=== PATIENT | male | born 1985 | race Caucasian/White ===

== ENCOUNTER → 2017-03-25 | Outpatient (CLI) | payer OTHER ==
[~2017-03-25] MED LIST: CEFU500T63 PO; RT-ALBUTEROL SULF 2.5 MG/3 ML PRE-MIX VIAL IH ONE
== END ==
LOC: RT 12:18
PROVIDERS: ATTEND Nurse Practitioner Family
DX: E66.01 Morbid (severe) obesity due to excess calories; R06.02 Shortness of breath; J45.909 Unspecified asthma, uncomplicated
CPT/HCPCS: 94060; 94640; 94726; 94729

== ENCOUNTER 2017-03-31 12:10 | Outpatient (CLI) | payer OTHER ==
[~2017-03-31 12:10] MED LIST changes: -RT-ALBUTEROL SULF 2.5 MG/3 ML PRE-MIX VIAL IH ONE
== END 2017-04-01 06:55 | disposition home or self-care (01) ==
LOC: SLEEP 12:10
PROVIDERS: ATTEND Nurse Practitioner Family
DX: G47.33 Obstructive sleep apnea (adult) (pediatric) (principal); R55 Syncope and collapse
CPT/HCPCS: 95811

== ENCOUNTER 2017-05-18 00:06 | Emergency (ER) | payer OTHER ==
[~2017-05-18] VITALS: Ht 193 cm; Wt 186.0 kg
[2017-05-18] MEDS ORDERED: KETOROLAC 60 MG/2 ML VIAL IM ONE (00:30)
[2017-05-18] MEDS ORDERED: ORPHENADRINE 60 MG/2 ML (NORFLEX) AMP IM ONE (00:30)
--- NOTE | 2017-05-18 00:36 | ED Upper Extremity ---
General Chief Complaint: Upper Extremity Stated Complaint: R SHOULDER PAIN Nursing Triage Note: RIGHT SHOULDER PAIN AFTER LIFTING AT WORK Nursing Sepsis Screen: No Definite Risk Source: patient Exam Limitations: no limitations History of Present Illness Time seen by provider: 00:13 Initial Comments This 31-year-old gentleman presents to the emergency room with sharp right- sided shoulder pain radiating up into the right trapezius muscle and to the lower neck. Symptoms started 2 days ago. 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 He has used ibuprofen up to 600 mg per dose and Aspercreme. He reports having a shoulder injury a few years ago with suspicion for rotator cuff damage that improved with physical therapy. Patient has also been trying a heating pad which has been mildly helpful. He denies any traumatic injury. Allergies and Home Medications Allergies Coded Allergies: Penicillins (Verified Allergy, Unknown, 11/25/16) morphine (Verified Allergy, Unknown, 11/25/16) Home Medications No Active Prescriptions or Reported Meds Constitutional: no symptoms reported EENTM: no symptoms reported Respiratory: no symptoms reported Cardiovascular: no symptoms reported Gastrointestinal: no symptoms reported Genitourinary: no symptoms reported Musculoskeletal: see HPI Skin: no symptoms reported Psychiatric/Neurological: No Symptoms Reported Past Tfocdbv-Xsrfsi-Ivlvgq Hx Patient Social History Alcohol Use: Denies Use Recreational Drug Use: No Type Used: Smokeless Tobacco 2nd Hand Smoke Exposure: No Recent Foreign Travel: No Contact w/Someone Who Travel: No Recent Infectious Disease Expo: No Recent Hopitalizations: No Immunizations Up To Date Tetanus Booster (TDap): Unknown Seasonal Allergies Seasonal Allergies: No Surgeries History of Surgeries: Yes (LOOP RECORDER) Respiratory History of Respiratory Disorde: Yes Respiratory Disorders: Asthma, Sleep Apnea Currently Using CPAP: No Currently Using BIPAP: No Cardiovascular History of Cardiac Disorders: Yes Cardiac Disorders: Syncope Neurological History of Neurological Disord: No Reproductive System Hx Reproductive Disorders: No Genitourinary History of Genitourinary Disor: No Gastrointestinal History of Gastrointestinal Di: No Musculoskeletal History of Musculoskeletal Dis: No Endocrine History of Endocrine Disorders: No (OBESE) HEENT History of HEENT Disorders: No Cancer History of Cancer: No Psychosocial History of Psychiatric Problem: No Integumentary History of Skin or Integumenta: No Blood Transfusions History of Blood Disorders: No Physical Exam Vital Signs Vital Sign - Last 12Hours 05/18/17 00:15 Temp 97.2 Pulse 100 Resp 18 B/P (MAP) 149/105 Pulse Ox 97 O2 Delivery Room Air Capillary Refill : Less Than 3 Seconds General Appearance: WD/WN, no apparent distress HEENT: normal ENT inspection Neck: normal inspection Cardiovascular: regular rate, rhythm, no murmur, other (normal right radial pulse) Respiratory: lungs clear, normal breath sounds, no respiratory distress Back: normal inspection Shoulder: normal inspection, limited ROM (active range of motion is intact with the exception of terminal range of motion with internal rotation and posterior reach behind the back. There is mild tenderness about the shoulder joint and moderate tenderness within the trapezius muscle which also feels tense.) Elbow/Forearm: normal inspection, non-tender, no evidence of injury, normal ROM , Right Wrist: Yes normal inspection, Yes non-tender, Yes no evidence of injury, Yes normal ROM Hand: normal inspection, non-tender, no evidence of injury, normal ROM, Right Neurologic/Psychiatric: manager meat II-XII nml as tested, no motor/sensory deficits, alert, normal mood/affect, oriented x 3 Skin: normal color, warm/dry Progress/Results/Core Measures Results/Orders My Orders Orders - SILAS TORRES MD Ketorolac Injection (Toradol Injection) (05/18/17 00:30) Orphenadrine Injection (Norflex Injectio (05/18/17 00:30) Vital Signs/I&O Blood Pressure Mean: 120 Progress Note : Progress Note Patient received injections for Toradol and Norflex. He was advised to use regular doses of ibuprofen and Tylenol and reduce strenuous activity. Ultimately, I believe he should follow-up with his primary care provider and/or an orthopedist for further assessment if a few days of ibuprofen does not resolve his problem. He may have aggravated his old rotator cuff injury. Reduced lifting and strenuous activity with the right upper extremity was recommended and a note for work was provided. Patient was also offered tramadol but he reports it was previously ineffective. x-rays were not performed as there was no history of traumatic injury. Departure Impression Impression: Primary Impression: Right shoulder pain Qualified Codes: M25.511 - Pain in right shoulder Additional Impression: Strain of trapezius muscle Qualified Codes: S46.811A - Strain of other muscles, fascia and tendons at shoulder and upper arm level, right arm, initial encounter Disposition: 01 HOME, SELF-CARE Condition: Improved Departure-Patient Inst. Decision time for Depature: 00:32 Referrals: NO,LOCAL PHYSICIAN (PCP/Family) Primary Care Physician Patient Instructions: Muscle Strain (DC), Shoulder Sprain Add. Discharge Instructions: Take ibuprofen up to 800 mg 3 times daily and add Tylenol (acetaminophen) 1000 mg every 6 hours as needed for pain. Minimize strenuous activity and lifting as much as possible until pain resolves. Follow-up with your primary care provider in 2 or 3 days if pain is not improving as expected. Discussed the possibility of MRI and/or orthopedic referral with your primary care provider. Ice and/or heat in 20 minute intervals may be helpful. All discharge instructions reviewed with patient and/or family. Voiced understanding. Scripts No Active Prescriptions or Reported Meds Work/School Note: Work Release Form Date Seen in the Emergency Department: May 18, 2017 Return to Work: May 18, 2017 Other Restrictions Listed Below: Minimize heavy lifting/strenuous activity of right arm as much as possible Restrictions: Minimize heavy lifting/strenuous activity with right arm as much as possibl SILAS TORRES MD May 18, 2017 00:36
[2017-05-18 01:00] VITALS: BP 149/105
== END 2017-05-18 00:58 | disposition home or self-care (01) ==
LOC: EDUNIT# 00:06 → ER 00:08
DX: S29.012A Strain of muscle and tendon of back wall of thorax, initial encounter (principal); M25.511 Pain in right shoulder; E66.9 Obesity, unspecified; J45.909 Unspecified asthma, uncomplicated; Z87.828 Personal history of other (healed) physical injury and trauma; X50.0XXA Overexertion from strenuous movement or load, initial encounter
CPT/HCPCS: 99284

== ENCOUNTER 2017-07-27 07:15 | Day surgery (SDC) | payer SELFPAY ==
[2017-07-27] VITALS (14 sets, daily range): BP systolic 101–156; BP diastolic 56–102
[~2017-07-27] VITALS: Ht 193 cm; Wt 202.5 kg
--- NOTE | 2017-07-27 07:30 | ED Chest Pain ---
General Chief Complaint: Chest Pain Stated Complaint: CP,LEFT SIDE PAIN Source: patient Exam Limitations: no limitations History of Present Illness Date Seen by Provider: Jul 27, 2017 Time Seen by Provider: 07:22 Initial Comments This 31-year-old white male presents with a complaint of left-sided chest pain. The pressure type chest pain began last night near midnight and has not changed upon presentation to the emergency department. Past medical history includes syncopal episodes for which Dr. Campos has implanted interrogation device. The patient does not have known heart disease. The patient has not had a cardiac catheter. The patient denies diaphoresis, nausea, or shortness of breath. Several days ago the patient had the onset of a flulike illness with nausea and vomiting. He denies associated fever, cough, headache, stiff neck, or photophobia. Past medical history includes sleep apnea. Allergies and Home Medications Allergies Coded Allergies: Penicillins (Verified Allergy, Unknown, 11/25/16) morphine (Verified Allergy, Unknown, 11/25/16) Review of Systems Constitutional: No chills, No fever EENTM: No Nose Congestion, No Throat Pain Respiratory: Denies Cough Cardiovascular: See HPI, Chest Pain, Denies Irregular Heart Rate, Denies Palpitations Gastrointestinal: Denies Abdominal Pain, Denies Diarrhea, Nausea, Vomiting Genitourinary: Denies Burning, Denies Frequency, Denies Flank Pain Musculoskeletal: No back pain Skin: No rash Psychiatric/Neurological: No Symptoms Reported Endocrine: No Symptoms Reported Hematologic/Lymphatic: No Symptoms Reported Past Mjksghy-Ynvbzb-Obtkrm Hx Patient Social History Type Used: Smokeless Tobacco 2nd Hand Smoke Exposure: No Recent Foreign Travel: No Contact w/Someone Who Travel: No Recent Hopitalizations: No Immunizations Up To Date Tetanus Booster (TDap): Unknown Seasonal Allergies Seasonal Allergies: No Surgeries History of Surgeries: Yes (LOOP RECORDER) Respiratory History of Respiratory Disorde: Yes Respiratory Disorders: Asthma, Sleep Apnea Currently Using CPAP: No Currently Using BIPAP: No Cardiovascular History of Cardiac Disorders: Yes Cardiac Disorders: Syncope Neurological History of Neurological Disord: No Reproductive System Hx Reproductive Disorders: No Genitourinary History of Genitourinary Disor: No Gastrointestinal History of Gastrointestinal Di: No Musculoskeletal History of Musculoskeletal Dis: No Endocrine History of Endocrine Disorders: No (OBESE) HEENT History of HEENT Disorders: No Cancer History of Cancer: No Psychosocial History of Psychiatric Problem: No Integumentary History of Skin or Integumenta: No Blood Transfusions History of Blood Disorders: No Reviewed Nursing Assessment Reviewed/Agree w Nursing PMH: Yes Physical Exam Vital Signs Vital Sign - Last 12Hours 07/27/17 07:21 Temp 97.5 Pulse 93 Resp 20 B/P (MAP) 136/80 (98) Pulse Ox 98 O2 Delivery Room Air Capillary Refill : General Appearance: No Apparent Distress, WD/WN, Obese HEENT: Normal ENT Inspection Neck: Normal Inspection Respiratory: Lungs Clear, Normal Breath Sounds, No Accessory Muscle Use, No Respiratory Distress Cardiovascular: Regular Rate, Rhythm, No Murmur Gastrointestinal: Normal Bowel Sounds, Non Tender, Soft Extremity: Normal Capillary Refill, Normal Inspection, Normal Range of Motion Neurologic/Psychiatric: Oriented x3, No Motor/Sensory Deficits, Normal Mood/ Affect Skin: Normal Color, Warm/Dry, No Rash Progress/Results/Core Measures Results/Orders Lab Results Laboratory Tests Test 07/27/17 07:23 Range/Units White Blood Count 9.7 4.3-11.0 10^3/uL Red Blood Count 4.71 4.35-5.85 10^6/uL Hemoglobin 13.3 13.3-17.7 G/DL Hematocrit 42 40-54 % Mean Corpuscular Volume 89 80-99 FL Mean Corpuscular Hemoglobin 28 25-34 PG Mean Corpuscular Hemoglobin Concent 32 32-36 G/DL Red Cell Distribution Width 13.2 10.0-14.5 % Platelet Count 296 130-400 10^3/uL Mean Platelet Volume 9.9 7.4-10.4 FL Neutrophils (%) (Auto) 67 42-75 % Lymphocytes (%) (Auto) 18 12-44 % Monocytes (%) (Auto) 14 H 0-12 % Eosinophils (%) (Auto) 1 0-10 % Basophils (%) (Auto) 1 0-10 % Neutrophils # (Auto) 6.5 1.8-7.8 X 10^3 Lymphocytes # (Auto) 1.7 1.0-4.0 X 10^3 Monocytes # (Auto) 1.4 H 0.0-1.0 X 10^3 Eosinophils # (Auto) 0.1 0.0-0.3 10^3/uL Basophils # (Auto) 0.1 0.0-0.1 10^3/uL Prothrombin Time 12.3 12.2-14.7 SEC INR Comment 0.9 0.8-1.4 Activated Partial Thromboplast Time 33 24-35 SEC Sodium Level 138 135-145 MMOL/L Potassium Level 3.9 3.6-5.0 MMOL/L Chloride Level 103 98-107 MMOL/L Carbon Dioxide Level 24 21-32 MMOL/L Anion Gap 11 5-14 MMOL/L Blood Urea Nitrogen 14 7-18 MG/DL Creatinine 0.96 0.60-1.30 MG/DL Estimat Glomerular Filtration Rate > 60 BUN/Creatinine Ratio 15 Glucose Level 128 H 70-105 MG/DL Calcium Level 8.9 8.5-10.1 MG/DL Magnesium Level 2.1 1.8-2.4 MG/DL Total Bilirubin 0.6 0.1-1.0 MG/DL Aspartate Amino Transf (AST/SGOT) 17 5-34 U/L Alanine Aminotransferase (ALT/SGPT) 21 0-55 U/L Alkaline Phosphatase 82 40-136 U/L Myoglobin 29.7 10.0-92.0 NG/ML Troponin I < 0.30 <0.30 NG/ML Total Protein 8.2 6.4-8.2 GM/DL Albumin 3.8 3.2-4.5 GM/DL Micro Results Microbiology 07/27/17 Influenza Types A,B Antigen (REJI) - Final, Complete My Orders Orders - OLVIN COUGHLIN MD Cbc With Automated Diff (07/27/17 07:32) Magnesium (07/27/17 07:32) Chest 1 View, Ap/Pa Only (07/27/17 07:32) Ekg Tracing (07/27/17 07:32) Cardiac Profile 1 (07/27/17 07:32) Comprehensive Metabolic Panel (07/27/17 07:32) Myoglobin Serum (07/27/17 07:32) Protime With Inr (07/27/17 07:32) Partial Thromboplastin Time (07/27/17 07:32) O2 (07/27/17 07:32) Monitor-Rhythm Ecg Trace Only (07/27/17 07:32) Lipid Panel (07/28/17 06:00) Aspirin Chewable Tablet (Baby Aspirin Ch (07/27/17 07:45) Nitroglycerin 0.4 Mg Btl 25's (Nitrostat (07/27/17 07:45) Saline Lock/Iv-Start (07/27/17 07:32) Influenza A And B Antigens (07/27/17 07:32) Ns Iv 1000 Ml (Sodium Chloride 0.9%) (07/27/17 07:45) Nitroglycerin Ointment (Nitrobid Ointme (07/27/17 09:15) Medications Given in ED Current Medications Medications Dose Ordered Sig/Charles Route Start Time Stop Time Status Last Admin Dose Admin Aspirin 324 mg ONCE ONCE PO 07/27/17 07:45 07/27/17 07:46 DC 07/27/17 07:46 324 MG Nitroglycerin 0.4 mg UD PRN SL 07/27/17 07:45 07/27/17 07:47 0.4 MG Nitroglycerin 1 inch ONCE ONCE TOP 07/27/17 09:15 07/27/17 09:16 DC 07/27/17 09:19 1 INCH Vital Signs/I&O Vital Sign - Last 12Hours 07/27/17 07/27/17 07:21 07:46 Temp 97.5 97.5 Pulse 93 Resp 20 B/P (MAP) 136/80 (98) Pulse Ox 98 O2 Delivery Room Air Progress Note : Time: 09:28 Progress Note The patient's lab demonstrated a normal troponin and an EKG which demonstrated a sinus tachycardia but no acute current of injury. However, the patient had a good response to nitroglycerin for his chest pain. Dr. Campos was kind enough to admit the patient for further observation and evaluation. The patient had an inch of nitro paste applied to his chest wall. Departure Communication (Admissions) Time/Spoke to Admitting Phy: 09:[address] Campos Impression Impression: Primary Impression: Chest pain Qualified Codes: R07.9 - Chest pain, unspecified Disposition: ADMITTED INPATIENT Condition: Improved Admissions Decision to Admit Reason: Admit from ER (General) Decision to Admit/Date: Jul 27, 2017 Time/Decision to Admit Time: 09:34 Transfer Time Spoke to Accepting Phy: 09:[address] Campos Departure-Patient Inst. Referrals: NO,LOCAL PHYSICIAN (PCP/Family) Primary Care Physician OLVIN COUGHLIN MD Jul 27, 2017 07:30
[2017-07-27] MEDS ORDERED: ASPIRIN 81 MG CHEW (CHILDREN'S ASA) PO ONE (07:45)
[2017-07-27] MEDS ORDERED: NS IV 1000 ML 1,000 ML IV SCH (07:45)
[2017-07-27] MEDS ORDERED: NITROGLYCERIN 0.4 MG SL TABS BTL 25'S SL PRN (07:45)
[2017-07-27 07:46] LABS: BASOPHILS # (AUTO) 0.1 10^3/uL (0.0-0.1); BASOPHILS % (AUTO) 1 % (0-10); EOSINOPHILS # (AUTO) 0.1 10^3/uL (0.0-0.3); EOSINOPHILS % (AUTO) 1 % (0-10); HEMATOCRIT 42 % (40-54); HEMOGLOBIN 13.3 G/DL (13.3-17.7); LYMPHOCYTES # (AUTO) 1.7 X 10^3 (1.0-4.0); LYMPHOCYTES % (AUTO) 18 % (12-44); MEAN CORPUSCULAR HEMOGLOBIN 28 PG (25-34); MEAN CORPUSCULAR HGB CONC 32 G/DL (32-36); MEAN CORPUSCULAR VOLUME 89 FL (80-99); MEAN PLATELET VOLUME 9.9 FL (7.4-10.4); MONOCYTES # (AUTO) 1.4 X 10^3 (0.0-1.0); MONOCYTES % (AUTO) 14 % (0-12); NEUTROPHILS # (AUTO) 6.5 X 10^3 (1.8-7.8); NEUTROPHILS % (AUTO) 67 % (42-75); PLATELET COUNT 296 10^3/uL (130-400); RED BLOOD COUNT 4.71 10^6/uL (4.35-5.85); RED CELL DISTRIBUTION WIDTH 13.2 % (10.0-14.5); WHITE BLOOD COUNT 9.7 10^3/uL (4.3-11.0)
[2017-07-27 07:53] LABS: ALANINE AMINOTRANSFERASE 21 U/L (0-55); ALBUMIN 3.8 GM/DL (3.2-4.5); ALKALINE PHOSPHATASE 82 U/L (40-136); BILIRUBIN,TOTAL 0.6 MG/DL (0.1-1.0); BUN/CREATININE RATIO 15; CALCIUM 8.9 MG/DL (8.5-10.1); CARBON DIOXIDE 24 MMOL/L (21-32); CHLORIDE 103 MMOL/L (98-107); CREATININE SERUM 0.96 MG/DL (0.60-1.30); GFR ESTIMATED > 60; GLUCOSE 128 MG/DL (70-105); MAGNESIUM 2.1 MG/DL (1.8-2.4); POTASSIUM 3.9 MMOL/L (3.6-5.0); SODIUM 138 MMOL/L (135-145); TOTAL PROTEIN 8.2 GM/DL (6.4-8.2)
[2017-07-27 07:55] LABS: INR 0.9 (0.8-1.4); PROTHROMBIN TIME PATIENT 12.3 SEC (12.2-14.7)
--- NOTE | 2017-07-27 08:00 | Diagnostic Imaging Report ---
INDICATION: Chest pain. PA chest obtained at 7:45 a.m. and compared with 11/25/2016. FINDINGS: Heart is normal in size for a portable view. Mediastinal silhouette is unremarkable. The lungs are clear. There is no pneumothorax or pleural fluid. IMPRESSION: Negative chest. Dictated by: Dictated on workstation # [id number]
[2017-07-27 08:01] LABS: MYOGLOBIN SERUM 29.7 NG/ML (10.0-92.0)
[2017-07-27] MEDS ORDERED: NITROGLYCERIN 2% OINT 1 GM UNIT DOSE PACKET TOP ONE (09:15)
[2017-07-27] MEDS ORDERED: IBUP-30 PO (12:40)
--- NOTE | 2017-07-27 12:42 | Cardiology History & Physical ---
HPI-Cardiology Cardiology H&P Date of Admission 07/27/17 Primary Care Physician Mary,Local Physician Attending Physician Isidro Campos MD, MA FACP [facility] Consulting Physician PHIL CC: Chest discomfort Mr. Rosario is a 31 year old male admitted to ICU 5 from the ED. He reports he began to have left sided chest pain which radiated across his chest, to his left arm and into his abdomen. He describes it as a hard pain which was constant. He rates it an 8/10. It lasted for several hours. He does report feeling some shortness of breath with the pain. He reports he became ill on night with n/v/d. He reports having fever and chills at home. No c/o cough. No c/o syncope or near syncope. No c/o LE edema. No c/o palpitations. He is currently pain free. Review of Systems-Cardiology Review of Systems Constitutional: chills, fever Eyes: No vision change Ears/Nose/Throat: No epistaxis Respiratory: As described under HPI Cardiovascular: As described under HPI Gastrointestinal: diarrhea, nausea, vomiting Genitourinary: No dysuria, No hematuria Musculoskeletal: no symptoms reported Skin: No rash, No ulcerations Psychiatric/Neurological: No syncope Hematologic: No bleeding abnormalities ERQ-Shyadt-Uumzgp Hx Patient Social History Alcohol Use: Denies Use Recreational Drug Use: No Smoking Status: Former Smoker Type Used: Smokeless Tobacco 2nd Hand Smoke Exposure: No Recent Foreign Travel: No Recent Infectious Disease Expo: No Immunizations Up To Date Tetanus Booster (TDap): Unknown Past Medical History PMH As described under Assessment. Family Medical History Family Medical History: He does not report any family h/o premature CAD or SCD. He reports his father and grand-father have Meinere's disease. Allergies and Home Medications Allergies Coded Allergies: Penicillins (Verified Allergy, Unknown, 11/25/16) morphine (Verified Allergy, Unknown, 11/25/16) Home Medications Ibuprofen 200 Mg Tablet, 400 MG PO Q6H PRN for PAIN-MILD, (Reported) Physical Exam-Cardiology Physical Exam Vital Signs/I&O Vital Sign - Last 12Hours 07/27/17 07/27/17 07/27/17 07/27/17 07:21 07:30 07:46 10:55 Temp 97.5 97.5 97.5 Pulse 93 83 Resp 20 18 B/P (MAP) 136/80 (98) Pulse Ox 98 96 O2 Delivery Room Air Room Air Room Air 07/27/17 07/27/17 07/27/17 13:00 15:08 16:00 Pulse 78 Pulse Ox 96 98 O2 Delivery Room Air Room Air Capillary Refill : Less Than 3 Seconds Constitutional: AAO x 3, well-developed, well-nourished HEENT: PERRL, hearing is well preserved Neck: No carotid bruit, carotid pulses are 2 + bilaterally Respiratory: other (good air entry) Cardiovascular: No JVD, S1 and S2 Gastrointestinal: No tender, soft, round, audible bowel sounds (hyperactive) Rectal: No deferred Extremities: no lower extremity edema bilateral Neurologic/Psychiatric: grossly intact, power is 5/5 both on sides Skin: No rash, No ulcerations Data Review Labs Laboratory Tests 07/27/17 07:23: White Blood Count 9.7, Red Blood Count 4.71, Hemoglobin 13.3, Hematocrit 42, Mean Corpuscular Volume 89, Mean Corpuscular Hemoglobin 28, Mean Corpuscular Hemoglobin Concent 32, Red Cell Distribution Width 13.2, Platelet Count 296, Mean Platelet Volume 9.9, Neutrophils (%) (Auto) 67, Lymphocytes (%) (Auto) 18, Monocytes (%) (Auto) 14H, Eosinophils (%) (Auto) 1, Basophils (%) (Auto) 1, Neutrophils # (Auto) 6.5, Lymphocytes # (Auto) 1.7, Monocytes # (Auto) 1.4H, Eosinophils # (Auto) 0.1, Basophils # (Auto) 0.1, Prothrombin Time 12.3, INR Comment 0.9, Activated Partial Thromboplast Time 33, Sodium Level 138, Potassium Level 3.9, Chloride Level 103, Carbon Dioxide Level 24, Anion Gap 11, Blood Urea Nitrogen 14, Creatinine 0.96, Estimat Glomerular Filtration Rate > 60 , BUN/Creatinine Ratio 15, Glucose Level 128H, Calcium Level 8.9, Magnesium Level 2.1, Total Bilirubin 0.6, Aspartate Amino Transf (AST/SGOT) 17, Alanine Aminotransferase (ALT/SGPT) 21, Alkaline Phosphatase 82, Myoglobin 29.7, Troponin I < 0.30, Total Protein 8.2, Albumin 3.8 07/27/17 11:45: Troponin I < 0.30 07/27/17 17:45: Troponin I < 0.30 Microbiology 07/27/17 Influenza Types A,B Antigen (REJI) - Final, Complete Radiology NAME: HERIBERTO ROSARIO [facility] REC#: [id number] PT STATUS: ADM Cory : 1985 PHYSICIAN: OLVIN COUGHLIN MD ADMIT DATE: 07/27/17/ICU Signed Date of Exam: 07/27/17 CHEST 1 VIEW, AP/PA ONLY INDICATION: Chest pain. PA chest obtained at 7:45 a.m. and compared with 11/25/2016. FINDINGS: Heart is normal in size for a portable view. Mediastinal silhouette is unremarkable. The lungs are clear. There is no pneumothorax or pleural fluid. IMPRESSION: Negative chest. Dictated by: Dictated on workstation # [id number] Dict: 07/27/17 0756 Trans: 07/27/17 1426 Interpreted by: ROULA VENTURA MD Electronically signed by: ROULA VENTURA MD 07/27/17 1426 ECG Impression ECG Initial ECG Rhythm: Normal Sinus A/P-Cardiology Assessment/Admission Diagnosis Chest discomfort of undetermined etiology - no evidence of ACS Occ near-syncope of undetermined etiology. ILR has not shown any significant arrhythmia during the last episode in December 2016. No further syncopal or near syncopal episodes LILO for which he is on CPAP tx being followed by Dr. Morel of pulmonology services Morbid obesity with BMI approx 56 Echo of 11/25/16: LVEF 65%, triv TR, PASP aprpox 30 mmHg ETT echo of 11/25/16: No ischemia or infarction S/p ILR, implanted 11/26/16: no significant cardiac arrhythmia demonstrated so far TSH normal on 11/25/16 (1.34) Recent GI illness Discussion and Recomendations Chest discomfort of undetermined etiology with no evidence of ACS Continue current medication regimen Ambulate Monitor lab Advised efforts at weight loss. D/t elevated BMI discussed risk of DM 2. Further rec will be based on his hospital course This H&P is being scribed by Antione Canela APRN on behalf of Dr. Campos after discussion regarding plan of care. Clinical Quality Measures AMI/AHF: ASA po Prior to arrival: No Physician Assessment Physician Assessment No cp or palp or syncope at time of my exam. Has had some shortness of breath and gen swelling Lungs: good bilat air entry Cor: reg Ext: mod edema A&R * As documented in our note above that I updated (italics) and as noted below * One dose of diuretics to treat edema * Consider card cath if symptoms of cp recur * No clinical evidence of pulm embolism * Enoxaparin for DVT and PE prevention * I spoke with him and his mother in detail and answered questions * Further recs to be based on hosp course ISIDRO CAMPOS MD FACP FAC CCDS Jul 27, 2017 12:42 ANDREINA CANELA Jul 27, 2017 16:30
[2017-07-27] MEDS ORDERED: INFLUENZA TRIvalent 2017-2018 0.5 ML/45 MCG SYR IM ONE (16:00)
[2017-07-27] MEDS ORDERED: NS IV 1000 ML 1,000 ML ONE (16:12)
[2017-07-27] MEDS ORDERED: FUROSEMIDE 40 MG/4 ML INJ (LASIX) ONE (17:52)
[2017-07-27] MEDS ORDERED: FUROSEMIDE 40 MG/4 ML INJ (LASIX) IVP ONE (18:00)
[2017-07-27 18:18] LABS: CARDIAC PROFILE 2 < 0.30 NG/ML (<0.30)
[2017-07-27] MEDS: ENOXAPARIN 40 MG/0.4 ML (LOVENOX) SYR SC SCH (22:02)
[2017-07-28] VITALS (18 sets, daily range): BP systolic 96–165; BP diastolic 65–113
[2017-07-28 04:57] LABS: BASOPHILS % (AUTO) 1 % (0-10); EOSINOPHILS # (AUTO) 0.2 10^3/uL (0.0-0.3); EOSINOPHILS % (AUTO) 2 % (0-10); HEMATOCRIT 42 % (40-54); HEMOGLOBIN 13.2 G/DL (13.3-17.7); LYMPHOCYTES # (AUTO) 2.2 X 10^3 (1.0-4.0); LYMPHOCYTES % (AUTO) 25 % (12-44); MEAN CORPUSCULAR HEMOGLOBIN 28 PG (25-34); MEAN CORPUSCULAR HGB CONC 32 G/DL (32-36); MEAN CORPUSCULAR VOLUME 88 FL (80-99); MEAN PLATELET VOLUME 9.6 FL (7.4-10.4); MONOCYTES # (AUTO) 0.8 X 10^3 (0.0-1.0); MONOCYTES % (AUTO) 9 % (0-12); NEUTROPHILS # (AUTO) 5.5 X 10^3 (1.8-7.8); NEUTROPHILS % (AUTO) 63 % (42-75); PLATELET COUNT 285 10^3/uL (130-400); RED CELL DISTRIBUTION WIDTH 13.3 % (10.0-14.5); WHITE BLOOD COUNT 8.7 10^3/uL (4.3-11.0)
[2017-07-28 05:29] LABS: ALANINE AMINOTRANSFERASE 24 U/L (0-55); ALBUMIN 3.7 GM/DL (3.2-4.5); ALKALINE PHOSPHATASE 63 U/L (40-136); BILIRUBIN,TOTAL 0.8 MG/DL (0.1-1.0); BUN/CREATININE RATIO 17; CALCIUM 8.9 MG/DL (8.5-10.1); CARBON DIOXIDE 24 MMOL/L (21-32); CHLORIDE 103 MMOL/L (98-107); CHOLESTEROL 192 MG/DL (< 200); GFR ESTIMATED > 60; GLUCOSE 110 MG/DL (70-105); HDL CHOLESTEROL 38 MG/DL (40-60); POTASSIUM 3.9 MMOL/L (3.6-5.0); SODIUM 139 MMOL/L (135-145); TOTAL PROTEIN 7.8 GM/DL (6.4-8.2); TRIGLYCERIDES 99 MG/DL (<150); VLDL CHOLESTEROL 20 MG/DL (5-40)
[2017-07-28] MEDS ORDERED: NS IV 1000 ML 1,000 ML ONE (07:36)
[2017-07-28] MEDS ORDERED: LIDOCAINE 1% INJ 50 ML (XYLOCAINE) VIAL ONE (07:36)
[2017-07-28] MEDS ORDERED: HEParin (CATH LAB) 2,000 ML IV ONE (07:36)
--- NOTE | 2017-07-28 08:47 | Progress Note-Cardiology ---
Cardiology SOAP Progress Note Subjective: In bed. No further c/o CP. States he feels better today. No c/o dyspnea, palpitations. Objective: I&O/Vital Signs Vital Sign - Last 12Hours 07/28/17 07/28/17 07/28/17 07/28/17 02:00 03:00 04:00 04:00 Pulse 93 92 87 Resp 19 16 B/P (MAP) 127/76 (93) 147/96 (113) 131/74 (93) Pulse Ox 94 95 96 94 O2 Delivery Room Air Room Air Room Air Room Air 07/28/17 07/28/17 07/28/17 07/28/17 05:00 06:00 08:00 08:00 Temp 97.6 Pulse 91 88 B/P (MAP) 124/99 (107) 136/77 (96) Pulse Ox 95 95 O2 Delivery Room Air Room Air Room Air Room Air 07/28/17 12:00 O2 Delivery Room Air Intake and Output 07/28/17 00:00 Intake Total 300 ml Output Total 1150 ml Balance -850 ml Weight (Pounds): 449 Weight (Ounces): 0.0 Weight (Calculated Kilograms): 203.861787 Constitutional: AAO x 3, well-developed, well-nourished Respiratory: other (good air entry) Cardiovascular: No JVD, S1 and S2 Gastrointestional: No tender, soft, round, audible bowel sounds (hyperactive) Extremities: no lower extremity edema bilateral Neurologic/Psychiatric: grossly intact, power is 5/5 both on sides Skin: No rash, No ulcerations Results/Procedures: Labs Laboratory Tests 07/27/17 17:45: Troponin I < 0.30 07/27/17 23:50: Troponin I < 0.30 07/28/17 04:35: White Blood Count 8.7, Red Blood Count 4.70, Hemoglobin 13.2L, Hematocrit 42, Mean Corpuscular Volume 88, Mean Corpuscular Hemoglobin 28, Mean Corpuscular Hemoglobin Concent 32, Red Cell Distribution Width 13.3, Platelet Count 285, Mean Platelet Volume 9.6, Neutrophils (%) (Auto) 63, Lymphocytes (%) (Auto) 25, Monocytes (%) (Auto) 9, Eosinophils (%) (Auto) 2, Basophils (%) (Auto) 1, Neutrophils # (Auto) 5.5, Lymphocytes # (Auto) 2.2, Monocytes # (Auto) 0.8, Eosinophils # (Auto) 0.2, Basophils # (Auto) 0.0, Sodium Level 139, Potassium Level 3.9, Chloride Level 103, Carbon Dioxide Level 24, Anion Gap 12, Blood Urea Nitrogen 15, Creatinine 0.90, Estimat Glomerular Filtration Rate > 60, BUN/ Creatinine Ratio 17, Glucose Level 110H, Calcium Level 8.9, Total Bilirubin 0.8 , Aspartate Amino Transf (AST/SGOT) 18, Alanine Aminotransferase (ALT/SGPT) 24, Alkaline Phosphatase 63, Total Protein 7.8, Albumin 3.7, Triglycerides Level 99 , Cholesterol Level 192, LDL Cholesterol Direct 138H, VLDL Cholesterol 20, HDL Cholesterol 38L Microbiology 07/27/17 Influenza Types A,B Antigen (REJI) - Final, Complete A/P: Assessment: Chest discomfort of undetermined etiology - no evidence of ACS Card cath on 07/28/17: no angiographically significant CAD; LVEF 50-55%; LVEDP 17mmHg; no significant MR; no evidence of thoracic aortic aneurysm or dissection Occ near-syncope of undetermined etiology. ILR has not shown any significant arrhythmia during the last episode in December 2016. No further syncopal or near syncopal episodes LILO for which he is on CPAP tx being followed by Dr. Morel of pulmonology services Morbid obesity with BMI approx 56 Echo of 11/25/16: LVEF 65%, triv TR, PASP aprpox 30 mmHg ETT echo of 11/25/16: No ischemia or infarction S/p ILR, implanted 11/26/16: no significant cardiac arrhythmia demonstrated so far TSH normal on 11/25/16 (1.34) Recent GI illness Plan: Chest discomfort of undetermined etiology with no evidence of ACS No recurrence of CP Continue current medication regimen Advised efforts at weight loss. D/t elevated BMI discussed risk of DM 2. Physician Assessment Physician Assessment No new symptoms Lungs: good bilat air entry, but chronically diminished at the bases Cor: reg Ext: no c/c. Mild to mod chronic nonpitting edema of the legs A&R * As documented in our note above that I updated (italics) and as noted below * Based on cardiac w/u, his chest pain does not appear to of CV origin. His cp has not recurred since admission * We have advised cardiopulm risk factor modification, most importantly wgt loss * We are continuing to monitor cardiac rhythm because of occ syncope or undetermined etiology Clinical Quality Measures AMI/AHF: ASA po Prior to arrival: ANDREINA Mendosa Jul 28, 2017 08:47 NAE SOSA MD FACP [facility] CCDS Jul 28, 2017 13:57
[2017-07-28] MEDS ORDERED: diphenhydrAMINE 50 MG/ML INJ (BENADRYL) ONE (11:29)
[2017-07-28] MEDS ORDERED: MIDAZOLAM 5 MG/5 ML (VERSED) VIAL ONE (11:29)
[2017-07-28] MEDS ORDERED: fentaNYL INJECTION 100 MCG/2 ML AMP ONE (11:29)
[2017-07-28] MEDS ORDERED: VERAPAMIL 5 MG/2 ML (CALAN) VIAL IV ONE (11:52)
[2017-07-28] MEDS ORDERED: NITROGLYCERIN DRIP 25 MG/D5W 250 ML IV ONE (11:52)
[2017-07-28] MEDS ORDERED: HEParin 1000 UNIT/ML (10ML VIAL) FOR BOLUS ONE (11:52)
[2017-07-28] MEDS: NS IV 1000 ML 1,000 ML IV SCH (14:20)
[2017-07-28] MEDS ORDERED: PATIENT MAY USE OWN MEDS, ALL PO SCH (14:30)
[2017-07-28] MEDS: ENOXAPARIN 40 MG/0.4 ML (LOVENOX) SYR SC SCH (20:03)
--- NOTE | 2017-07-28 21:13 | CARDIAC CATHETERIZATION ---
DATE OF SERVICE: CARDIAC CATHETERIZATION REPORT The patient is a 31-year-old man, who has a history of intermittent syncope. He presents with chest pain relieved with sublingual nitroglycerin. He has multiple coronary artery disease risk factors, including morbid obesity with a body mass index of approximately 55. Cardiac catheterization was carried out today after having obtained an informed consent. PROCEDURE: He was brought to the cardiac catheterization laboratory in a fasting state. Plan was to proceed through the right radial approach. Yony's test was normal. We proceeded with cannulation of the right radial artery after preparing and draping the area in the usual sterile fashion and after using 1% lidocaine. Getting into the ascending aorta, however, proved very difficult. This is because the ostium of the left brachiocephalic artery is at the downslope of the aortic arch, creating a very difficult angle for advancement of wires and catheters to the ascending aorta for coronary angiography and left ventricular angiography. We were able to advance multiple catheters, but we were then not able to torque them appropriately for coronary angiography. In the end, after multiple attempts, this approach was abandoned. The sheath was left in place in the wrist and we carried out cardiac catheterization via the groin approach. The right groin had been prepared and draped in the usual sterile fashion. We used 1% lidocaine and used the modified Seldinger technique to access the right femoral artery. At first, we got into the left femoral vein and we did advance a 5-[place] sheath into the left femoral vein and used that as a guide to cannulate the right femoral artery. We were then able to advance a 6-[place] sheath into the right femoral artery, through which we carried out left heart catheterization. We used a 6-[place] JL4 catheter for left coronary angiography and 6-[place] JR4 catheter for right coronary angiography. We used a 5-[place] pigtail catheter for left heart catheterization, left ventricular angiography. The catheter was pulled back and placed in the aortic arch and aortic arch angiography was performed. The aortic arch angiography was performed because of our initial difficulty with accessing the ascending aorta through the right subclavian trunk and we wanted to ensure that there were no complications or any significantly abnormal anatomy. This angiography was performed and the catheter was then removed. We carried out angiography of the right femoral artery through the sheath, but the site of sheath insertion was not appropriate for device closure of the right femoral artery. Manual pressure was used to achieve hemostasis. He tolerated the procedure well. HEMODYNAMICS: Left ventricular end-diastolic pressure following coronary angiography was 17 mmHg. There was no significant pressure gradient on pullback across the aortic valve. Ascending aortic pressure was 113/86 with a mean of 97 mmHg. LEFT VENTRICULAR ANGIOGRAPHY: Left ventricular angiography was carried out in the right anterior oblique projection. Global left ventricular systolic function appears well preserved. Left ventricular ejection fraction is 50% to 55%. There does not appear to be significant mitral regurgitation. CORONARY ANGIOGRAPHY: Left main coronary artery, left anterior descending artery, left circumflex artery, right coronary artery appear angiographically normal. Flow throughout the coronaries is somewhat sluggish. No significant obstructive disease is seen. Right coronary artery is dominant. AORTIC ARCH ANGIOGRAPHY: Aortic arch angiography did not indicate any significant thoracic aortic aneurysm or dissection. The ostium of the right brachiocephalic trunk is on the downslope of the aortic arch, creating a difficult angle for approach via the right radial artery. The neck arteries, to the extent seen, do not exhibit any significant stenosis or dissection. CONCLUSIONS: 1. No angiographically significant coronary artery disease. 2. Well preserved global left ventricular systolic function with ejection fraction of 50 to 55%. 3. Mild elevation of left ventricular end-diastolic pressure. 4. No significant mitral regurgitation. 5. No evidence of any thoracic aortic aneurysm or dissection. DISCUSSION AND RECOMMENDATIONS: Based on the results of the study, his chest discomfort does not appear to be of cardiovascular origin. Continuing risk factor modification is advised, in particular efforts at weight loss, given body mass index of approximately 55. Job ID: [id number] DocumentID: [id number] Dictated Date: 07/28/2017 14:14:57 [employer] Date: 07/28/2017 14:59:00 Dictated By: NAE SOSA MD, MA, FACP, FACC,
[2017-07-29] VITALS (7 sets, daily range): BP systolic 120–153; BP diastolic 70–92
[2017-07-29] MEDS: NS IV 1000 ML 1,000 ML IV SCH (00:49)
[2017-07-29 04:26] LABS: HEMOGLOBIN 12.9 G/DL (13.3-17.7); MEAN PLATELET VOLUME 9.7 FL (7.4-10.4); RED BLOOD COUNT 4.56 10^6/uL (4.35-5.85)
[2017-07-29 04:44] LABS: BUN/CREATININE RATIO 17; CALCIUM 8.9 MG/DL (8.5-10.1); CARBON DIOXIDE 24 MMOL/L (21-32); CHLORIDE 104 MMOL/L (98-107); CREATININE SERUM 0.95 MG/DL (0.60-1.30); GFR ESTIMATED > 60; GLUCOSE 118 MG/DL (70-105); SODIUM 139 MMOL/L (135-145)
--- NOTE | 2017-07-29 08:33 | Progress Note-Cardiology ---
Cardiology SOAP Progress Note Subjective: No c/o CP, palpitations, or dyspnea. C/O right groin pain at the cardiac cath site. No c/o right wrist pain. Objective: I&O/Vital Signs Vital Sign - Last 12Hours 07/29/17 07/29/17 07/29/17 07/29/17 07:00 08:03 08:30 08:37 Temp 97.8 Pulse 84 89 Resp 21 B/P (MAP) 124/74 (91) Pulse Ox 95 97 O2 Delivery Nasal Cannula Room Air Nasal Cannula O2 Flow Rate 2.00 2.00 07/29/17 07/29/17 07/29/17 08:46 12:35 13:05 Temp 98.2 B/P (MAP) 153/91 (111) Pulse Ox 96 O2 Delivery Room Air Nasal Cannula Intake and Output 07/29/17 00:00 Intake Total 0 ml Output Total 1000 ml Balance -1000 ml Weight (Pounds): 446 Weight (Ounces): 6.0 Weight (Calculated Kilograms): 202.110495 Side: right (right groin and right wrist) Groin site without hematoma: Yes Condition: DP/PT pulses palpable, extremity w/d/p Bruising: mild bruising Constitutional: AAO x 3, well-developed, well-nourished Respiratory: other (good air entry) Cardiovascular: No JVD, S1 and S2 Gastrointestional: No tender, soft, round, audible bowel sounds Extremities: no lower extremity edema bilateral Neurologic/Psychiatric: grossly intact, power is 5/5 both on sides Skin: No rash, No ulcerations Results/Procedures: Labs Laboratory Tests 07/29/17 04:12: White Blood Count 9.0, Red Blood Count 4.56, Hemoglobin 12.9L, Hematocrit 40, Mean Corpuscular Volume 89, Mean Corpuscular Hemoglobin 28, Mean Corpuscular Hemoglobin Concent 32, Red Cell Distribution Width 13.0, Platelet Count 302, Mean Platelet Volume 9.7, Sodium Level 139, Potassium Level 4.0, Chloride Level 104, Carbon Dioxide Level 24, Anion Gap 11, Blood Urea Nitrogen 16, Creatinine 0.95, Estimat Glomerular Filtration Rate > 60, BUN/Creatinine Ratio 17, Glucose Level 118H, Calcium Level 8.9 Microbiology 07/27/17 Influenza Types A,B Antigen (REJI) - Final, Complete A/P: Assessment: Chest discomfort of undetermined etiology - no evidence of ACS; does not appear to be cardiac in origin based on cardiac cath of 07-28-17 Card cath on 07/28/17: no angiographically significant CAD; LVEF 50-55%; LVEDP 17mmHg; no significant MR; no evidence of thoracic aortic aneurysm or dissection Occ near-syncope of undetermined etiology. ILR has not shown any significant arrhythmia during the last episode in December 2016. No further syncopal or near syncopal episodes LILO for which he is on CPAP tx being followed by Dr. Morel of pulmonology services Morbid obesity with BMI approx 56 Echo of 11/25/16: LVEF 65%, triv TR, PASP aprpox 30 mmHg ETT echo of 11/25/16: No ischemia or infarction S/p ILR, implanted 11/26/16: no significant cardiac arrhythmia demonstrated so far TSH normal on 11/25/16 (1.34) Recent GI illness Plan: Chest discomfort of undetermined etiology with no evidence of ACS; does not appear cardiac in origin based on cardiac cath of 07-28-17 No recurrence of CP Continue current medication regimen Advised efforts at weight loss. D/t elevated BMI discussed risk of DM 2 C/O right groin pain at the cardiac cath site - arterial u/s today Likely d/c home today if right groin u/s OK Physician Assessment Physician Assessment Feels well. Denies cp or palp or shortness of breath or syncope. Wishes to go home Lungs: clear Cor: reg Ext: no c/c/e. Mild bruising at sites of vascular access A&R * As documented in our note above that I update (italics) and as noted below * We discussed his CV w/u * Focus of CV management is on risk factor mod * We advised him of his risk for DM II * We advised wgt loss and discussed strategies * We advised outpt f/u Clinical Quality Measures AMI/AHF: ASA po Prior to arrival: ANDREINA Mendosa [employer] OPERATOR Jul 29, 2017 08:33 NAE SOSA MD FACP [facility]AC CCDS Jul 29, 2017 17:27
--- NOTE | 2017-07-29 09:46 | Diagnostic Imaging Report ---
INDICATION: Right groin pain, status post heart catheterization. TECHNIQUE: Sonographic interrogation of the right groin was performed. FINDINGS: The right common femoral artery and vein are patent. No hematoma or pseudoaneurysm is identified. No AV fistula is detected. IMPRESSION: Unremarkable right groin ultrasound. Dictated by: Dictated on workstation # [id number]
--- NOTE | 2017-07-29 17:39 | Cardiac Procedure Note-CS/ASA ---
Pre-Procedure Note Pre-Op Procedure Note H&P Reviewed The H&P was reviewed, patient examined and no changes noted. Date H&P Reviewed: Jul 28, 2017 Time H&P Reviewed: 11:00 Conscious Sedation Pre-Proced Time Reviewed: 11:00 ASA Class: 3 Airway Mallampati Classification: ([place] appropriate class) I. II. III, IV Lungs Heart ASA score ASA 1: a normal healthy patient ASA 2: a patient with a mild systemic disease (mid diabetes, controlled hypertension, obesity ASA 3: a patient with a severe systemic disease that limits activity (angina , COPD, prior Myocardial infarction) ASA 4: a patient with an incapacitating disease that is a constant threat to life (CHF, renal failure) ASA 5: a moribund patient not expected to survive 24 hrs. (ruptured aneurysm) ASA 6: a declared brain patient whose organs are being harvested. For emergent operations, add the letter E after the classification Grade 4 Sedation Plan: Analgesia, Amnesia, Plan communicated to team members, Discussed options with patient/fam, Discussed risks with patient/fam Note The patient is an appropriate candidate to undergo the planned procedure, sedation, and anesthesia. The patient immediately re-assessed prior to indication. NAE SOSA MD FACP [facility]AC CCDS Jul 29, 2017 17:39
--- NOTE | 2017-07-29 17:42 | Cardiology Discharge Summary ---
Diagnosis/Chief Complaint Date of Admission Jul 27, 2017 at 11:05 Date of Discharge Jul 29, 2017 at 13:10 Final/Discharge Diagnosis Chest discomfort of undetermined etiology - no evidence of ACS; does not appear to be cardiac in origin based on cardiac cath of 07-28-17. No clinical evidence of pulmonary embolism Card cath on 07/28/17: no angiographically significant CAD; LVEF 50-55%; LVEDP 17mmHg; no significant MR; no evidence of thoracic aortic aneurysm or dissection Occ near-syncope of undetermined etiology. ILR has not shown any significant arrhythmia during the last episode in December 2016. No further syncopal or near syncopal episodes LILO for which he is on CPAP tx being followed by Dr. Morel of pulmonology services Morbid obesity with BMI approx 56 Echo of 11/25/16: LVEF 65%, triv TR, PASP aprpox 30 mmHg ETT echo of 11/25/16: No ischemia or infarction S/p ILR, implanted 11/26/16: no significant cardiac arrhythmia demonstrated so far TSH normal on 11/25/16 (1.34) Recent GI illness Chief Complaint/HPI Chief Complaint/HPI CC: Chest discomfort Mr. Mcmanus is a 31 year old male admitted to ICU 5 from the ED. He reports he began to have left sided chest pain which radiated across his chest, to his left arm and into his abdomen. He describes it as a hard pain which was constant. He rates it an 8/10. It lasted for several hours. He does report feeling some shortness of breath with the pain. He reports he became ill on night with n/v/d. He reports having fever and chills at home. No c/o cough. No c/o syncope or near syncope. No c/o LE edema. No c/o palpitations. He is currently pain free. Please refer to our note of today's date (07/29/17) for hosp course Discharge Summary Procedures Card cath on 07/28/17 Discussion & Recommendations Home Medications Reviewed patient Home Medication Reconciliation Form Discharge Home Medications: Reviewed and agree with Discharge Medication list on patient's Discharge Instruction sheet Clinical Quality Measures AMI/AHF: ASA po Prior to arrival: No DVT/VTE Risk/Contraindication: Risk Factor Score Per Nursin RFS Level Per Nursing on Admit: 1=Low/No VTE PPX ANE SOSA MD FACP FAC CCDS Jul 29, 2017 17:42
== END 2017-07-29 13:10 | disposition home or self-care (01) ==
LOC: EDUNIT# 07:15 → ER 07:17 → UNDOADMOB 09:42 → ICU 09:42 → UNDOADMOB 11:05 → ICU 11:05 → CATH 11:05 → ICU 07-28 11:49 → CATH 07-29 13:10 → UNDODISOB 07-29 13:10
PROVIDERS: ATTEND Internal Medicine Cardiovascular Disease
DX: R07.89 Other chest pain (principal); R55 Syncope and collapse; G47.33 Obstructive sleep apnea (adult) (pediatric); E66.01 Morbid (severe) obesity due to excess calories; Z68.43 Body mass index [BMI] 50.0-59.9, adult; Z87.891 Personal history of nicotine dependence; Z88.0 Allergy status to penicillin; Z88.5 Allergy status to narcotic agent
CPT/HCPCS: 36221; 36415; 71045; 80048; 80053; 80061; 83735; 83874; 84484; 85025; 85027; 85610; 85730; 87804; 93005; 93041; 93458; 93926; 96360